=== PATIENT | female | born 1975 | race Caucasian/White ===

== ENCOUNTER 2017-08-01 20:41 | Emergency (ER) | payer MEDICARE, OTHER ==
[~2017-08-01] VITALS: Ht 157.5 cm; Wt 125.6 kg
[~2017-08-01 20:41] MED LIST: CLON1TAB23 PO; ESZO3TAB28 PO; GABA800T2 PO; QUET25TA PO; RANI150T8 PO; SERT50TA5 PO; TOPI25TA32 PO
[2017-08-01] MEDS ORDERED: SERT100T5 PO (21:44)
[2017-08-01] MEDS ORDERED: OMEP20TA62 PO (21:44)
[2017-08-01] MEDS ORDERED: QUET400T PO (21:44)
[2017-08-01] MEDS ORDERED: MORPHINE SULFATE 4 MG/ML, 1ML IVPush ONE (22:00)
[2017-08-01] MEDS ORDERED: ONDANSETRON 2MG/ML, 2ML IVPush ONE (22:00)
[2017-08-01] MEDS ORDERED: ONDANSETRON 2MG/ML, 2ML ONE (22:24)
[2017-08-01] MEDS ORDERED: MORPHINE SULFATE 4 MG/ML, 1ML ONE (22:24)
[2017-08-01 22:46] LABS: HEMATOCRIT 40.6 % (34.6-47.8); HEMOGLOBIN 13.4 g/dL (11.7-16.4); WHITE BLOOD COUNT 11.1 x10^3/uL (3.4-10)
[2017-08-01 22:57] LABS: BLOOD UREA NITROGEN 16 mg/dL (7-18)
[2017-08-01 23:02] LABS: ASPARTATE AMINO TRANSFERASE 23 U/L (15-37)
[2017-08-01] MEDS ORDERED: OMNIPAQUE 350 MG/ML, 100ML BOTTLE ONE (23:27)
[2017-08-02] MEDS ORDERED: METHOCARBAMOL 750 MG TABLET ONE (00:30)
[2017-08-02] MEDS ORDERED: HYDROcodone/APAP 5/325 TABLET PO ONE (00:30)
[2017-08-02] MEDS ORDERED: METHOCARBAMOL 750 MG TABLET PO ONE (00:30)
[2017-08-02] MEDS ORDERED: HYDROcodone/APAP 5/325 TABLET ONE (00:30)
[2017-08-02 00:33] VITALS: BP 121/70
== END 2017-08-02 00:41 | disposition home or self-care (01) ==
LOC: ED 08-02 00:35
DX: S20.212A Contusion of left front wall of thorax, initial encounter (principal); S50.12XA Contusion of left forearm, initial encounter; S30.1XXA Contusion of abdominal wall, initial encounter; E78.00 Pure hypercholesterolemia, unspecified; Z88.8 Allergy status to other drugs, medicaments and biological substances; V89.2XXA Person injured in unspecified motor-vehicle accident, traffic, initial encounter; Y93.I9 Activity, other involving external motion; Y92.488 Other paved roadways as the place of occurrence of the external cause; Y99.8 Other external cause status
CPT/HCPCS: 36415; 71020; 72131; 73030; 74177; 80053; 83690; 85025; 85610; 85730; 96374; 96375; 99285; J2405; Q9967

== ENCOUNTER 2017-08-23 12:45 | Emergency (ER) | payer MEDICARE ==
[~2017-08-23] VITALS: Ht 157.5 cm; Wt 126.6 kg
[~2017-08-23 12:45] MED LIST changes: +OMEP20TA62 PO; +QUET400T PO; +SERT100T5 PO
[2017-08-23] MEDS ORDERED: KETOROLAC 30 MG/1 ML ONE (13:24)
[2017-08-23] MEDS ORDERED: PROCHLORPERAZINE 5 MG/ML, 2ML ONE (13:24)
[2017-08-23] MEDS ORDERED: ONDANSETRON 2MG/ML, 2ML ONE (13:25)
[2017-08-23] MEDS ORDERED: DIPHENHYDRAMINE 50 MG/ML, 1ML ONE (13:25)
[2017-08-23] MEDS ORDERED: SODIUM CHLORIDE 0.9% 1,000ML IVBOLUS ONE (13:30)
[2017-08-23] MEDS ORDERED: SODIUM CHLORIDE FLUSH 10ML SYR IVF ONE (13:30)
[2017-08-23] MEDS ORDERED: DIPHENHYDRAMINE 50 MG/ML, 1ML IVPush ONE (13:30)
[2017-08-23] MEDS ORDERED: PROCHLORPERAZINE 5 MG/ML, 2ML IVPush ONE (13:30)
[2017-08-23] MEDS ORDERED: KETOROLAC 30 MG/1 ML IVPush ONE (13:30)
[2017-08-23] MEDS ORDERED: ONDANSETRON 2MG/ML, 2ML IVPush ONE (13:30)
[2017-08-23 14:39] VITALS: BP 98/65
== END 2017-08-23 15:04 | disposition home or self-care (01) ==
LOC: ED 14:40
DX: G43.019 Migraine without aura, intractable, without status migrainosus (principal); E78.00 Pure hypercholesterolemia, unspecified; Z90.49 Acquired absence of other specified parts of digestive tract
CPT/HCPCS: 96361; 96374; 96375; 99284; J0780; J1200; J1885; J2405; J7030

== ENCOUNTER 2018-04-10 14:09 | Inpatient (IN) | payer MEDICAID, MEDICARE ==
[~2018-04-10] VITALS: Ht 157.5 cm; Wt 130.0 kg
[~2018-04-10 14:09] MED LIST changes: +CEFAZOLIN 1,000 MG ONE; +DEXAMETHASONE 4 MG/ML, 1ML ONE; +GLYCOPYRROLATE 0.2MG/1ML, 5ML ONE; +NEOSTIGMINE 1 MG/ML, 10ML ONE; +PROPOFOL 10 MG/ML, 20ML ONE; +RANI150T23 PO; -RANI150T8 PO; +ROCURONIUM 10 MG/ML,10ML ONE
[2018-04-10] MEDS ORDERED: SCOPOLAMINE PATCH, 1.5MG PATCH.TD72 TD ONE (15:00)
[2018-04-10] MEDS ORDERED: ONDANSETRON ODT 8 MG PO ONE (15:00)
[2018-04-10] MEDS ORDERED: LACTATED RINGERS 1,000 ML IV SCH ×2 (15:00)
[2018-04-10] MEDS ORDERED: OxyconTIN ER 10 MG TAB.ER ONE (15:51)
[2018-04-10] MEDS ORDERED: GABAPENTIN 300 MG CAPSULE ONE (15:51)
[2018-04-10] MEDS ORDERED: OxyconTIN ER 10 MG TAB.ER PO ONE (16:00)
[2018-04-10] MEDS ORDERED: GABAPENTIN 300 MG CAPSULE PO ONE (16:00)
[2018-04-10] MEDS ORDERED: LABETALOL 5MG/ML, 20ML IV PRN (17:00)
[2018-04-10] MEDS ORDERED: ALBUTEROL SULFATE 2.5 MG/3 ML NPPB PRN (17:00)
[2018-04-10] MEDS ORDERED: hydrALAzine 20 MG/ML, 1ML IV PRN (17:00)
[2018-04-10] MEDS ORDERED: PROMETHAZINE 25 MG/ML, 1ML IV PRN (17:00)
[2018-04-10] MEDS ORDERED: FENTANYL PF 100 MCG/2ML IV PRN (17:00)
[2018-04-10] MEDS ORDERED: ACETAMINOPHEN 325 MG TABLET PO PRN (17:00)
[2018-04-10] MEDS ORDERED: PROMETHAZINE 12.5 MG SUPP PR PRN (17:00)
[2018-04-10] MEDS ORDERED: MORPHINE SULFATE 4 MG/ML, 1ML IVPush PRN (17:00)
[2018-04-10] MEDS ORDERED: HYDROmorphone 1 MG/ML, 1ML IV PRN (17:00)
[2018-04-10] MEDS ORDERED: PROMETHAZINE 25 MG SUPP PR PRN (17:00)
[2018-04-10] MEDS ORDERED: ONDANSETRON ODT 8 MG PO PRN (17:00)
[2018-04-10] MEDS ORDERED: MEPERIDINE/PF 25MG/0.5ML IVPush PRN (17:00)
[2018-04-10] MEDS ORDERED: OXYcodone 5 MG/5 ML ORAL.SOL UDC PO PRN (17:00)
[2018-04-10] MEDS ORDERED: BUPIVACAINE/PF 0.5% INFIL ONE (17:58)
[2018-04-10] MEDS ORDERED: EPINEPHRINE 1 MG/ML, 1ML INFIL ONE (17:58)
[2018-04-10] MEDS ORDERED: PHENOL THROAT SPRAY BOTTLE MM PRN (18:30)
[2018-04-10] MEDS ORDERED: ONDANSETRON 2MG/ML, 2ML IVPush PRN (18:30)
[2018-04-10] MEDS ORDERED: ENALAPRILAT 1.25 MG/ML, 2ML IV PRN (18:30)
[2018-04-10] MEDS ORDERED: DIPHENHYDRAMINE 50 MG/ML, 1ML IV PRN (18:30)
[2018-04-10] MEDS ORDERED: LORazepam 2 MG/ML, 1ML IV PRN (18:30)
[2018-04-10 20:00] VITALS: BP 124/80
[2018-04-10] MEDS: ENOXAPARIN 40 MG/0.4 ML SQ SCH (20:48)
[2018-04-10] MEDS: POTASSIUM CHLORIDE 20 MEQ in LACTATED RINGERS 1,000 ML IV SCH (20:48)
[2018-04-11 00:12] VITALS: BP 109/69
[2018-04-11 03:50] VITALS: BP 113/74
[2018-04-11] MEDS: POTASSIUM CHLORIDE 20 MEQ in LACTATED RINGERS 1,000 ML IV SCH (05:13)
[2018-04-11 05:27] LABS: BASOPHILS # (AUTO) 0.07 x10^3/uL (0-0.1); BASOPHILS % (AUTO) 1 % (0-1); EOSINOPHILS # (AUTO) 0.01 x10^3/uL (0-0.4); EOSINOPHILS % (AUTO) 0 % (1-7); LYMPHOCYTES # (AUTO) 1.11 x10^3/uL (1-3.4); LYMPHOCYTES % (AUTO) 8 % (22-44); MD NO; MEAN CORPUSCULAR HEMOGLOBIN 27.7 pg (27.0-34.8); MEAN CORPUSCULAR HGB CONC 32.6 g/dL (32.4-35.8); MEAN CORPUSCULAR VOLUME 84.9 fL (80-100); MEAN PLATELET VOLUME 10.2 fL (7.4-10.4); MONOCYTES # (AUTO) 0.35 x10^3/uL (0.2-0.8); MONOCYTES % (AUTO) 2 % (2-9); NEUTROPHILS # (AUTO) 13.38 x10^3/uL (1.8-6.8); NEUTROPHILS % (AUTO) 90 % (42-75); PLATELET COUNT 314 x10^3/uL (130-400); RED BLOOD COUNT 4.92 x10^6/uL (3.82-5.3); RED CELL DISTRIBUTION WIDTH 15.2 % (9.6-15.2)
[2018-04-11 05:40] LABS: ALBUMIN 3.3 g/dL (3.4-5.0); ANION GAP 6 mmol/L (5-15); CALCIUM 8.3 mg/dL (8.5-10.1); CHLORIDE 104 mmol/L (98-107)
[2018-04-11 05:45] LABS: ALANINE AMINOTRANSFERASE 54 U/L (12-78); ALKALINE PHOSPHATASE 57 U/L (45-117); BILIRUBIN,TOTAL 0.6 mg/dL (0.2-1.0); CREATININE 0.91 mg/dL (0.55-1.02); TOTAL PROTEIN 7.7 g/dL (6.4-8.2)
[2018-04-11] MEDS: HYDROcodone/APAP 7.5-325MG/15ML UDC PO PRN ×4 (06:16→18:40)
[2018-04-11 07:15] VITALS: BP 106/66
[2018-04-11] MEDS: FAMOTIDINE 20 MG/2 ML IVPush SCH (09:03)
[2018-04-11] MEDS: ENOXAPARIN 40 MG/0.4 ML SQ SCH ×2 (09:04→21:43)
[2018-04-11 14:20] VITALS: BP 124/81
[2018-04-11] MEDS ORDERED: POTASSIUM CHLORIDE 20 MEQ in LACTATED RINGERS 1,000 ML IV SCH (18:24)
[2018-04-11 19:46] VITALS: BP 145/84
[2018-04-11] MEDS ORDERED: QUETIAPINE 100MG TABLET PO SCH (21:00)
[2018-04-11] MEDS ORDERED: ZOLPIDEM 5MG TABLET PO SCH (21:00)
[2018-04-11] MEDS ORDERED: SERTRALINE 100MG TABLET PO SCH (21:00)
[2018-04-12] MEDS: HYDROcodone/APAP 7.5-325MG/15ML UDC PO PRN ×2 (02:24→07:34)
[2018-04-12 03:26] VITALS: BP 125/60
[2018-04-12 06:45] LABS: BASOPHILS # (AUTO) 0.04 x10^3/uL (0-0.1); BASOPHILS % (AUTO) 0 % (0-1); EOSINOPHILS # (AUTO) 0.21 x10^3/uL (0-0.4); EOSINOPHILS % (AUTO) 2 % (1-7); LYMPHOCYTES # (AUTO) 1.81 x10^3/uL (1-3.4); LYMPHOCYTES % (AUTO) 19 % (22-44); MD NO; MEAN CORPUSCULAR HEMOGLOBIN 27.7 pg (27.0-34.8); MEAN CORPUSCULAR HGB CONC 32.8 g/dL (32.4-35.8); MEAN CORPUSCULAR VOLUME 84.5 fL (80-100); MEAN PLATELET VOLUME 9.7 fL (7.4-10.4); MONOCYTES # (AUTO) 0.68 x10^3/uL (0.2-0.8); MONOCYTES % (AUTO) 7 % (2-9); NEUTROPHILS # (AUTO) 6.96 x10^3/uL (1.8-6.8); NEUTROPHILS % (AUTO) 72 % (42-75); PLATELET COUNT 235 x10^3/uL (130-400); RED CELL DISTRIBUTION WIDTH 15.5 % (9.6-15.2)
[2018-04-12 06:57] LABS: ALANINE AMINOTRANSFERASE 51 U/L (12-78); ALBUMIN 3.1 g/dL (3.4-5.0); ANION GAP 5 mmol/L (5-15); CHLORIDE 105 mmol/L (98-107)
[2018-04-12 06:59] LABS: ALKALINE PHOSPHATASE 54 U/L (45-117); BILIRUBIN,TOTAL 0.5 mg/dL (0.2-1.0); TOTAL PROTEIN 7.1 g/dL (6.4-8.2)
[2018-04-12 08:07] VITALS: BP 141/84
[2018-04-12 08:35] VITALS: BP 149/100
[2018-04-12] MEDS: FAMOTIDINE 20 MG/2 ML IVPush SCH (09:07)
[2018-04-12] MEDS: ENOXAPARIN 40 MG/0.4 ML SQ SCH (09:07)
== END 2018-04-12 09:49 | disposition home or self-care (01) | DRG 327 ==
LOC: OR 14:09 → 4NOR 20:03
PROVIDERS: ADMIT Surgery; ATTEND Surgery
PROC: 0BQT4ZZ Repair Diaphragm, Percutaneous Endoscopic Approach (ICD-10-PCS; 2018-04-10)
PROC: 0FB23ZX Excision of Left Lobe Liver, Percutaneous Approach, Diagnostic (ICD-10-PCS; 2018-04-10)
PROC: 0DB64Z3 Excision of Stomach, Percutaneous Endoscopic Approach, Vertical (ICD-10-PCS; principal; 2018-04-10 15:45)
DX: K44.9 Diaphragmatic hernia without obstruction or gangrene (principal); Z68.43 Body mass index [BMI] 50.0-59.9, adult; E66.01 Morbid (severe) obesity due to excess calories; K76.0 Fatty (change of) liver, not elsewhere classified; F32.9 Major depressive disorder, single episode, unspecified; F41.9 Anxiety disorder, unspecified; K21.9 Gastro-esophageal reflux disease without esophagitis; R33.9 Retention of urine, unspecified; R74.0 Nonspecific elevation of levels of transaminase and lactic acid dehydrogenase [LDH]
CPT/HCPCS: 36415; 71046; 80053; 85025; 85610; 88307; 93005; J0171; J0690; J1100; J1650; J2250; J2270; J2704; J2710; J3010; J3480; J3490; Q0162; C1760; J0360; J7120; S0028

== ENCOUNTER 2018-04-21 15:59 | Emergency (ER) | payer MEDICARE ==
[~2018-04-21] VITALS: Ht 157.5 cm; Wt 125.0 kg
[~2018-04-21 15:59] MED LIST changes: -CEFAZOLIN 1,000 MG ONE; -DEXAMETHASONE 4 MG/ML, 1ML ONE; -GLYCOPYRROLATE 0.2MG/1ML, 5ML ONE; -NEOSTIGMINE 1 MG/ML, 10ML ONE; -PROPOFOL 10 MG/ML, 20ML ONE; -ROCURONIUM 10 MG/ML,10ML ONE
[2018-04-21 17:56] VITALS: BP 132/78
[2018-04-21] MEDS ORDERED: OMNIPAQUE 350 MG/ML, 100ML BOTTLE ONE (18:00)
[2018-04-21 18:08] LABS: BASOPHILS # (AUTO) 0.07 x10^3/uL (0-0.1); BASOPHILS % (AUTO) 1 % (0-1); EOSINOPHILS # (AUTO) 0.48 x10^3/uL (0-0.4); EOSINOPHILS % (AUTO) 6 % (1-7); LYMPHOCYTES # (AUTO) 2.58 x10^3/uL (1-3.4); LYMPHOCYTES % (AUTO) 32 % (22-44); MD NO; MEAN CORPUSCULAR HEMOGLOBIN 27.8 pg (27.0-34.8); MEAN CORPUSCULAR VOLUME 84.1 fL (80-100); MEAN PLATELET VOLUME 9.6 fL (7.4-10.4); MONOCYTES # (AUTO) 0.63 x10^3/uL (0.2-0.8); MONOCYTES % (AUTO) 8 % (2-9); NEUTROPHILS # (AUTO) 4.38 x10^3/uL (1.8-6.8); NEUTROPHILS % (AUTO) 54 % (42-75); PLATELET COUNT 289 x10^3/uL (130-400); RED BLOOD COUNT 4.59 x10^6/uL (3.82-5.3); RED CELL DISTRIBUTION WIDTH 15.3 % (9.6-15.2)
[2018-04-21 18:16] LABS: ALBUMIN 3.1 g/dL (3.4-5.0); ANION GAP 7 mmol/L (5-15); CALCIUM 8.7 mg/dL (8.5-10.1); CHLORIDE 106 mmol/L (98-107); CREATININE 0.98 mg/dL (0.55-1.02)
== END 2018-04-21 19:47 | disposition home or self-care (01) ==
LOC: ED 18:57
DX: S46.012A Strain of muscle(s) and tendon(s) of the rotator cuff of left shoulder, initial encounter (principal); G43.909 Migraine, unspecified, not intractable, without status migrainosus; F60.3 Borderline personality disorder; F31.9 Bipolar disorder, unspecified; E78.00 Pure hypercholesterolemia, unspecified; Z90.49 Acquired absence of other specified parts of digestive tract; Z90.710 Acquired absence of both cervix and uterus; Z88.8 Allergy status to other drugs, medicaments and biological substances; X58.XXXA Exposure to other specified factors, initial encounter; Y93.89 Activity, other specified; Y92.89 Other specified places as the place of occurrence of the external cause; Y99.8 Other external cause status
CPT/HCPCS: 36415; 71045; 71275; 73030; 80048; 82040; 85025; 93005; 99285; Q9967

== ENCOUNTER 2018-05-20 08:04 | Emergency (ER) | payer MEDICARE ==
[~2018-05-20] VITALS: Ht 157.5 cm; Wt 119.9 kg
[2018-05-20 08:06] VITALS: BP 120/71
[2018-05-20] MEDS ORDERED: OXYcodone/APAP 10/325MG TABLET ONE (08:36)
[2018-05-20] MEDS ORDERED: OXYcodone/APAP 10/325MG TABLET PO ONE (09:00)
[2018-05-20 09:33] LABS: MICROSCOPIC NOT IND
[2018-05-20 09:44] LABS: CULTURE INDICATED? NO
== END 2018-05-20 10:47 | disposition home or self-care (01) ==
LOC: ED 08:20
DX: S93.492A Sprain of other ligament of left ankle, initial encounter (principal); S93.432A Sprain of tibiofibular ligament of left ankle, initial encounter; F43.10 Post-traumatic stress disorder, unspecified; G43.909 Migraine, unspecified, not intractable, without status migrainosus; F31.9 Bipolar disorder, unspecified; E78.00 Pure hypercholesterolemia, unspecified; F60.3 Borderline personality disorder; Z90.49 Acquired absence of other specified parts of digestive tract; Z90.710 Acquired absence of both cervix and uterus; Z98.51 Tubal ligation status; Z88.8 Allergy status to other drugs, medicaments and biological substances; W10.8XXA Fall (on) (from) other stairs and steps, initial encounter; Y93.89 Activity, other specified; Y92.89 Other specified places as the place of occurrence of the external cause; Y99.8 Other external cause status
CPT/HCPCS: 81003; 82962; 99285

== ENCOUNTER 2019-12-10 13:04 | Day surgery (SDC) | payer MEDICARE ==
[~2019-12-10] VITALS: Ht 157.5 cm; Wt 108.0 kg
[~2019-12-10 13:04] MED LIST changes: -GABA800T2 PO; +GABA800T5 PO; -QUET25TA PO; +QUET25TA7 PO; +RANI-467 PO; -RANI150T23 PO; +SERT100T32 PO; -SERT100T5 PO; +SERT50TA28 PO; -SERT50TA5 PO
[2019-12-10 13:33] VITALS: BP 150/93
[2019-12-10] MEDS ORDERED: LACTATED RINGERS 1,000 ML IV SCH (13:38)
[2019-12-10] MEDS ORDERED: MIDAZOLAM 1 MG/ML, 2ML ONE (14:41)
[2019-12-10] MEDS ORDERED: PROPOFOL 10 MG/ML, 20ML ONE ×2 (14:42→15:12)
[2019-12-10] MEDS ORDERED: FENTANYL PF 100 MCG/2ML IV PRN (15:00)
[2019-12-10] MEDS ORDERED: ROCURONIUM 10MG/ML,5ML ONE (15:12)
[2019-12-10] MEDS ORDERED: SUCCINYLCHOLINE 20 MG/ML, 10ML ONE (15:12)
[2019-12-10] MEDS ORDERED: NEOSTIGMINE 1 MG/ML, 10ML ONE (15:12)
[2019-12-10] MEDS ORDERED: GLYCOPYRROLATE 0.2MG/1ML, 5ML ONE (15:12)
[2019-12-10] MEDS ORDERED: CEFAZOLIN 1,000 MG ONE (15:12)
[2019-12-10] MEDS ORDERED: ONDANSETRON 2MG/ML, 2ML ONE (15:12)
[2019-12-10] MEDS ORDERED: DEXAMETHASONE 4 MG/ML, 1ML ONE (15:12)
[2019-12-10] MEDS ORDERED: TRIAMCINOLONE ACETONIDE 40 MG/ML, 1ML IM ONE (15:30)
== END 2019-12-10 16:50 | disposition home or self-care (01) ==
LOC: OR 13:04
PROVIDERS: ATTEND Surgery
DX: R13.10 Dysphagia, unspecified (principal); K31.2 Hourglass stricture and stenosis of stomach; F32.9 Major depressive disorder, single episode, unspecified; K21.9 Gastro-esophageal reflux disease without esophagitis; E78.00 Pure hypercholesterolemia, unspecified; G47.30 Sleep apnea, unspecified; F10.21 Alcohol dependence, in remission; Z90.49 Acquired absence of other specified parts of digestive tract; Z90.3 Acquired absence of stomach [part of]; Z90.710 Acquired absence of both cervix and uterus; Z98.51 Tubal ligation status; Z88.8 Allergy status to other drugs, medicaments and biological substances
CPT/HCPCS: 43249; J0330; J0690; J1100; J2250; J2405; J2704; J3301; J2710